=== PATIENT | female | born 1945 | race African-American/Black ===

== ENCOUNTER 2020-07-06 09:56 | Day surgery (SDCO) | payer MEDICARE, OTHER ==
[~2020-07-06 09:56] MED LIST: ACETAMINOPHEN325 MG PO; ARICEPT 5MG TABL5 MG PO; ASPIRIN EC81 MG PO; BISCOLAX10 MG PR; CELEXA20 MG PO; COLACE100 MG PO; FEROSUL325 MG PO; HYDRALAZINE25 MG PO; LISINOPRIL30 MG PO; LOPRESSOR50 MG PO; MELATIN3 MG PO; NAMENDA10 MG PO; NORVASC 10MG TA10 MG PO; PRILOSEC20 MG PO; ROBAFEN100 MG/5 M PO
[2020-07-06 10:31] LABS: BILIRUBIN 1+ mg/dL (NEGATIVE); BLOOD 1+ Ery/uL (NEGATIVE); CLARITY CLEAR (CLEAR); COLOR YELLOW (YELLOW); GLUCOSE (U) NORMAL (NORMAL); LEUKOCYTES NEGATIVE Leu/uL (NEGATIVE); NITRITE NEGATIVE (NEGATIVE); PROTEIN 1+ mg/dL (NEGATIVE); SPECIFIC GRAVITY >=1.030 (1.001-1.030); pH 5.5 (5.0-9.0)
[2020-07-06 10:38] LABS: BACTERIA 1+; URINARY WBC RARE
[2020-07-06 11:00] LABS: BASOPHIL 0.2 % (0-2); EOSINOPHIL 0 % (0-7); HCT 44.8 % (37.0-47.0); HGB 14.1 g/dl (12.5-16.0); LYMPHOCYTE 9.1 % (15-48); MCH 27.9 pg (25.0-31.0); MCHC 31.5 g/dL (32.0-36.0); MCV 88.7 fL (78.0-100.0); MPV 11.1 fL (6.0-9.5); NEUTROPHIL 82.4 % (41-80); NRBC 0; PLT 251 K/uL (150-400); RBC 5.05 M/uL (4.20-5.40); RDW 14.7 % (11.5-14.0); WBC 10.5 K/uL (4.0-10.5)
[2020-07-06 11:11] LABS: INR 1.13 (0.9-1.2); PROTHROMBIN TIME 13.8 SECONDS (11.4-13.6); PTT 32.9 SECONDS (22.2-34.7)
[2020-07-06 11:27] LABS: ALBUMIN 3.1 g/dL (3.4-5.0); BILIRUBIN - TOTAL 0.4 mg/dL (0.2-1.0); BUN/CREAT RATIO (CALC) 24.4 RATIO; CREATININE 0.86 mg/dL (0.51-0.95); GLOBULIN (CALCULATION) 5.1 g/dL; MAGNESIUM 1.7 mg/dL (1.8-2.4); POTASSIUM 3.8 mmol/L (3.5-5.1); TOTAL PROTEIN 8.2 g/dL (6.4-8.2)
[2020-07-06 11:36] LABS: LACTIC ACID 1.3 mmol/L (0.4-1.9)
[2020-07-06] MEDS ORDERED: FAMOTIDINE20 MG PO (15:04)
[2020-07-06] MEDS ORDERED: NORVASC5 MG PO (15:05)
[2020-07-06] MEDS ORDERED: NAMENDA XR28 MG PO (15:07)
--- NOTE | 2020-07-07 12:39 | NUR ---
[facility] ; PT IS A DNR AND SHE IS AN OBSERVATION AT THIS TIME;
[2020-07-07 13:48] LABS: BASOPHIL 0.1 % (0-2); EOSINOPHIL 0.1 % (0-7); HCT 43.3 % (37.0-47.0); HGB 13.6 g/dl (12.5-16.0); LYMPHOCYTE 7.7 % (15-48); MCH 27.8 pg (25.0-31.0); MCHC 31.4 g/dL (32.0-36.0); MCV 88.5 fL (78.0-100.0); MPV 11.2 fL (6.0-9.5); NEUTROPHIL 85.7 % (41-80); NRBC 0; PLT 236 K/uL (150-400); RBC 4.89 M/uL (4.20-5.40); RDW 14.6 % (11.5-14.0); WBC 9.4 K/uL (4.0-10.5)
[2020-07-07 14:16] LABS: ALBUMIN 2.9 g/dL (3.4-5.0); BILIRUBIN - TOTAL 0.4 mg/dL (0.2-1.0); BUN/CREAT RATIO (CALC) 23.5 RATIO; CREATININE 0.68 mg/dL (0.51-0.95); GLOBULIN (CALCULATION) 4.9 g/dL; POTASSIUM 3.7 mmol/L (3.5-5.1); TOTAL PROTEIN 7.8 g/dL (6.4-8.2)
[2020-07-08 07:49] LABS: BASOPHIL 0.1 % (0-2); EOSINOPHIL 0.1 % (0-7); HCT 42.8 % (37.0-47.0); HGB 13.6 g/dl (12.5-16.0); LYMPHOCYTE 8.3 % (15-48); MCH 27.5 pg (25.0-31.0); MCHC 31.8 g/dL (32.0-36.0); MCV 86.5 fL (78.0-100.0); MONOCYTE 6.4 % (0-12); MPV 11.8 fL (6.0-9.5); NEUTROPHIL 84.9 % (41-80); NRBC 0; PLT 224 K/uL (150-400); RBC 4.95 M/uL (4.20-5.40); RDW 14.3 % (11.5-14.0); WBC 8.5 K/uL (4.0-10.5)
[2020-07-08 08:22] LABS: ALBUMIN 2.8 g/dL (3.4-5.0); BILIRUBIN - TOTAL 0.5 mg/dL (0.2-1.0); BUN/CREAT RATIO (CALC) 14.8 RATIO; C-REACTIVE PROTEIN 12.2 mg/dL (<=0.90); CREATININE 0.54 mg/dL (0.51-0.95); GLOBULIN (CALCULATION) 5.4 g/dL; POTASSIUM 5.1 mmol/L (3.5-5.1); TOTAL PROTEIN 8.2 g/dL (6.4-8.2)
[2020-07-08] MEDS ORDERED: HYDRALAZINE HCL25 MG PO (10:43)
[2020-07-08] MEDS ORDERED: CLONIDINE HCL0.1 MG PO (10:43)
[2020-07-08] MEDS ORDERED: LOPRESSOR25 MG PO (10:43)
[2020-07-08] MEDS ORDERED: PREDNISONE 20MG20 MG PO (11:19)
[2020-07-08] MEDS ORDERED: PRINIVIL10 MG PO (11:25)
--- NOTE | 2020-07-08 12:28 | NUR ---
07/08/20 [facility] has accepted patient back today. Report given to MS CHATO Farnsworth.
== END 2020-07-08 17:00 ==
LOC: FER 09:56 → FMS 11:55
PROVIDERS: Emergency Medicine; ADMIT Internal Medicine
DX: E86.0 Dehydration (principal); U07.1 COVID-19; R63.8 Other symptoms and signs concerning food and fluid intake; I10 Essential (primary) hypertension; E11.9 Type 2 diabetes mellitus without complications; K92.2 Gastrointestinal hemorrhage, unspecified; J44.9 Chronic obstructive pulmonary disease, unspecified; K21.9 Gastro-esophageal reflux disease without esophagitis; H26.9 Unspecified cataract; I69.351 Hemiplegia and hemiparesis following cerebral infarction affecting right dominant side; L89.329 Pressure ulcer of left buttock, unspecified stage; F01.50 Vascular dementia, unspecified severity, without behavioral disturbance, psychotic disturbance, mood disturbance, and anxiety; G93.41 Metabolic encephalopathy; Z66 Do not resuscitate; Z79.82 Long term (current) use of aspirin; Z79.899 Other long term (current) drug therapy; Z87.19 Personal history of other diseases of the digestive system; Z86.79 Personal history of other diseases of the circulatory system
CPT/HCPCS: 36415; 70450; 71045; 80053; 81001; 82728; 82962; 83605; 83615; 83690; 83735; 84145; 84443; 84484; 85025; 85610; 85730; 86140; 87040; 87088; 93005; 94010; G0378; J0360; J1650; J7030; P9612; U0002